=== PATIENT | female | born 1965 ===

== ENCOUNTER 2020-07-26 14:56 | Emergency (ER) | payer OTHER, BC ==
[2020-07-26] MEDS ORDERED: Ketorolac Tromethamine 30 MG/ML VIAL ONE (15:31)
== END 2020-07-26 16:35 | disposition home or self-care (01) ==
LOC: ERS 14:56
DX: S16.1XXA Strain of muscle, fascia and tendon at neck level, initial encounter (principal); S00.03XA Contusion of scalp, initial encounter; E03.9 Hypothyroidism, unspecified; I10 Essential (primary) hypertension; V49.40XA Driver injured in collision with unspecified motor vehicles in traffic accident, initial encounter
CPT/HCPCS: 70450; 72125; 96374; J1885